=== PATIENT | female | born 2000 | race Caucasian/White ===

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

== ENCOUNTER → 2023-09-22 | Outpatient (CLI) | payer OTHER ==
[2023-09-28 10:12] LABS: HPV 16 Negative (Negative); HPV 18 Negative (Negative); HPV OTHER HR TYPES Positive (Negative)
== END ==
LOC: LAB SHORT 16:30 → LAB 16:30
PROVIDERS: Obstetrics & Gynecology
DX: Z87.42 Personal history of other diseases of the female genital tract (principal)
CPT/HCPCS: 87624; 88175

== ENCOUNTER → 2023-10-14 | Outpatient (CLI) | payer OTHER | LOC: LAB SHORT 12:29 → LAB 12:29 | DX: R87.619 Unspecified abnormal cytological findings in specimens from cervix uteri (principal) | CPT/HCPCS: 88305 ==

== ENCOUNTER 2023-11-29 19:54 | Emergency (ER) | payer OTHER ==
[~2023-11-29] VITALS: Ht 172.7 cm; Wt 54.4 kg
[2023-11-29 23:04] LABS: SARS-Cov-2 (COVID-19) PCR, MMC NEGATIVE (NEGATIVE)
[2023-11-30 00:36] LABS: Influenza A Negative (NEGATIVE); Influenza B Negative (NEGATIVE)
[2023-11-30 01:08] VITALS: BP 110/72
== END 2023-11-30 01:10 | disposition home or self-care (01) ==
LOC: ER 19:54
PROVIDERS: Physician Assistant
DX: J06.9 Acute upper respiratory infection, unspecified (principal); B97.4 Respiratory syncytial virus as the cause of diseases classified elsewhere; J45.909 Unspecified asthma, uncomplicated; F17.200 Nicotine dependence, unspecified, uncomplicated; Z88.0 Allergy status to penicillin; Z88.2 Allergy status to sulfonamides; Z88.1 Allergy status to other antibiotic agents; Z91.09 Other allergy status, other than to drugs and biological substances; Z91.018 Allergy to other foods
CPT/HCPCS: 87804; 87807; 96372; 99283-25; A9270; J1885; U0002

== ENCOUNTER 2023-12-31 06:21 | Day surgery (SDC) | payer OTHER ==
[~2023-12-31] VITALS: Ht 172.7 cm; Wt 54.8 kg
[~2023-12-31 06:21] MED LIST changes: +Lactated Ringer's 1,000 ML IV ONE
[2023-12-31] MEDS ORDERED: Lidocaine HCl/Pf 1% 5 ML VIAL ONE (07:05)
[2023-12-31] MEDS ORDERED: Vasopressin 20 UNITS/ML 1ML Vial ONE (07:05)
[2023-12-31] MEDS ORDERED: Silver Nitr/Potassium Nitrate 1 EA APPL ONE (07:07)
[2023-12-31] MEDS ORDERED: Atarax10 MG PO (07:09)
[2023-12-31] MEDS ORDERED: ACET500 PO (07:10)
[2023-12-31] MEDS ORDERED: FentaNYL Citrate 50 MCG/ML 2 ML Injection ONE (07:11)
[2023-12-31] MEDS ORDERED: propofoL 20 ML IV ONE (07:11)
[2023-12-31] MEDS ORDERED: Lactated Ringer's 1,000 ML IV ONE (07:26)
--- NOTE | 2023-12-31 07:32 | NUR ---
12/31/[address] [facility] INFECTION 11/29/23 PT REPORTS NO RECENT FEVER OR COUGH, "IT HAS RESOLVED" PER PATIENT. OK TO PROCEED PER DR EGAN
--- NOTE | 2023-12-31 07:47 | NUR ---
12/31/23 0747 Lyubov Beatty 30ML OF LIDOCAINE 1% MIXED WITH 10 UNITS OF VASOPRESSIN FOR INJECTION AT THE OPSITE BY DR HAMMOND.
[2023-12-31] MEDS ORDERED: Bupivacaine 0.5% HCl 5 MG/ML 30MLVIAL ONE (07:48)
[2023-12-31] MEDS ORDERED: Metoclopramide HCl 5MG / ML 2ML Vial ONE (07:55)
[2023-12-31] MEDS ORDERED: Atropine Sulfate 0.4 MG/1 ML Vial ONE (07:59)
[2023-12-31 08:23] VITALS: BP 114/83
[2023-12-31] MEDS ORDERED: Ketorolac Tromethamine 30mg Vial ONE (08:46)
[2023-12-31] MEDS ORDERED: Acetaminophen 500 MG Tab ONE (08:46)
--- NOTE | 2023-12-31 08:58 | NUR ---
12/31/23 0858 Hossein ZapienADOL 30MG IV GIVEN ALONG WITH ACETAMINOPHEN 1000MG PER DR ORDERS AT 0855. PAIN LEVEL IS REPORTED TO BE A 2/10 TO THROAT ONLY
== END 2023-12-31 09:11 | disposition home or self-care (01) ==
LOC: ORSCSDS 06:21
PROVIDERS: Obstetrics & Gynecology
PROC: 0UBC7ZX Excision of Cervix, Via Natural or Artificial Opening, Diagnostic (ICD-10-PCS; principal; 2023-12-31 07:30)
DX: D06.0 Carcinoma in situ of endocervix (principal); N88.2 Stricture and stenosis of cervix uteri; J45.909 Unspecified asthma, uncomplicated; F17.210 Nicotine dependence, cigarettes, uncomplicated; Z79.899 Other long term (current) drug therapy
CPT/HCPCS: 88305; A9270; J0461; J1885; J2001; J2704; J2765; J3010; J7120